=== PATIENT | male | born 1930 | race Caucasian/White ===

== ENCOUNTER 2021-08-01 10:42 | Inpatient (IN) | payer MEDICARE, OTHER ==
[2021-08-01 11:45] LABS: #Eosinphils 0.1 thou/uL (0.0-0.7); #Lymphocytes 0.6 thou/uL (1.20-3.40); #Monocytes 1.8 thou/uL (0.11-0.59); #Neutrophils 10.6 thou/uL (1.40-6.50); %Basophils 0.3 % (0.0-1.0); %Eosinophils 0.6 % (0.0-10.0); %Lymphocytes 4.3 % (21.0-51.0); %Monocytes 13.6 % (0.0-10.0); %Neutrophils 81.3 % (42.0-75.0); Hemoglobin 13.1 g/dL (14.0-18.0); Mean Corpuscular HGB CONC 32.4 g/dL (32.0-36.0); Mean Corpuscular Hemoglobin 30.6 pg (27.0-31.0); Mean Corpuscular Volume 94.5 fL (78.0-98.0); Platelet Count 230 thou/uL (130-400); RBC Distribution Width 11.8 % (11.5-14.5); Red Blood Cell (RBC) Count 4.27 mill/uL (4.70-6.10); White Blood Cell (WBC) Count 13.1 thou/uL (4.8-10.8)
[2021-08-01 12:08] LABS: Acetaminophen Less than 10.0 mcg/mL (10.0-30.0); Alcohol Less than 10 mg/dL (Less than 10); Salicylate Less than 8.0 mg/dL (15.0-30.0)
[2021-08-01 12:10] LABS: ALT (SGPT) 48 U/L (8-55); AST (SGOT) 48 U/L (5-34); Albumin 3.3 g/dL (3.4-4.8); Alkaline Phosphatase 78 U/L (40-110); Anion Gap 14 mmol/L (10-20); BUN (Urea Nitrogen) 41 mg/dL (8.4-25.7); Bilirubin, Total 1.7 mg/dL (0.2-1.2); CK (CPK) 94 U/L (30-200); Calc. Creatinine Clearance 0 mL/min (70-130); Calcium 10.6 mg/dL (7.8-10.44); Carbon Dioxide 24 mmol/L (23-31); Chloride 103 mmol/L (98-107); Globulin 3.3 g/dL (2.4-3.5); Glucose 176 mg/dL (83-110); Lipase 19 U/L (8-78); Potassium 3.5 mmol/L (3.5-5.1); Protein, Total 6.6 g/dL (5.8-8.1); Sodium 137 mmol/L (136-145)
[2021-08-01 12:31] LABS: CKMB 2.6 ng/mL (0-6.6)
[2021-08-01] MEDS ORDERED: Enoxaparin Sodium 30 MG/0.3 ML SYRINGE ONE (12:58)
[2021-08-01] MEDS ORDERED: Enoxaparin Sodium 60 MG/0.6 ML SYRINGE ONE (12:58)
[2021-08-01] MEDS ORDERED: Aspirin Chewable 81 MG TAB ONE (12:58)
[2021-08-01] MEDS ORDERED: Ondansetron PF 4 MG/2 ML Vial IVP PRN (13:59)
[2021-08-01] MEDS ORDERED: Acetaminophen 325 MG TAB PO PRN (13:59)
[2021-08-01] MEDS ORDERED: Ondansetron ODT 4 MG TAB PO PRN (13:59)
[2021-08-01] MEDS ORDERED: Acetaminophen 650 MG Suppository PR PRN (13:59)
[2021-08-01 14:13] LABS: SARS-CoV-2 NAA Rapid Test Not Detected (NotDetected)
[2021-08-01 15:56] LABS: CKMB 2.6 ng/mL (0-6.6)
[2021-08-01 16:29] LABS: Bacteria/HPF 4+ HPF (None Seen); Bilirubin Negative (Negative); Blood, Urine Negative (Negative); Glucose, Urine (Dipstick) Normal (Negative); Ketone, Urine Negative (Negative); Leukocyte Negative Leu/uL (Negative); Nitrite Negative (Negative); Protein, Urine (Dipstick) 100 mg/dL (Neg-Trace); RBC/HPF 0-3 HPF (0-3); Squamous Epithelial 0-3 HPF (0-3); Urobilinogen Normal mg/dL (Less than 2); WBC/HPF 0-3 HPF (0-3); pH, Urine 5.5 (5.0-9.0)
[2021-08-01 16:30] LABS: Clarity Cloudy (Clear)
[2021-08-01 16:35] LABS: Amphetamine Not Detected (NotDetected); Barbiturates Screen Not Detected (NotDetected); Benzodiazepine Screen Not Detected (NotDetected); Cocaine Metabolite Screen Not Detected (NotDetected); Methadone Not Detected (NotDetected); Methamphetamine Not Detected (NotDetected); Opiate Screen Not Detected (NotDetected); Oxycodone Screen Not Detected (NotDetected); Phencyclidine (PCP) Not Detected (NotDetected); THC/Cannabinoid Screen Not Detected (NotDetected); Tricyclic Screen Not Detected (NotDetected)
[2021-08-01 19:22] VITALS: BMI 30.7
[2021-08-01 20:36] LABS: SARS-CoV-2 NAA Rapid Test Not Detected (NotDetected)
[2021-08-01] MEDS: Famotidine 20 MG TAB PO SCH (21:12)
[2021-08-01] MEDS ORDERED: Cepastat Lozenges 1 LOZ PO PRN (21:38)
[2021-08-01] MEDS: hydrALAZINE 20 MG/ML VIAL SLOW IVP PRN (21:46)
[2021-08-01 23:44] LABS: Legionella Urinary Ag Negative (Negative); Strep pneumo Urine Ag NEGATIVE (NEGATIVE)
[2021-08-02] MEDS: hydrALAZINE 20 MG/ML VIAL SLOW IVP PRN (03:39)
[2021-08-02 06:46] LABS: #Basophils 0.1 thou/uL (0.0-0.2); #Eosinphils 0.2 thou/uL (0.0-0.7); #Lymphocytes 0.3 thou/uL (1.20-3.40); #Monocytes 1.2 thou/uL (0.11-0.59); #Neutrophils 8.8 thou/uL (1.40-6.50); %Basophils 1.1 % (0.0-1.0); %Eosinophils 1.9 % (0.0-10.0); %Monocytes 11.3 % (0.0-10.0); %Neutrophils 82.7 % (42.0-75.0); Hemoglobin 14.5 g/dL (14.0-18.0); Mean Corpuscular HGB CONC 31.6 g/dL (32.0-36.0); Mean Corpuscular Hemoglobin 30.3 pg (27.0-31.0); Mean Corpuscular Volume 95.8 fL (78.0-98.0); Mean Platelet Volume 7.8 fL (7.4-10.4); Platelet Count 185 thou/uL (130-400); RBC Distribution Width 11.8 % (11.5-14.5); Red Blood Cell (RBC) Count 4.77 mill/uL (4.70-6.10); White Blood Cell (WBC) Count 10.6 thou/uL (4.8-10.8)
[2021-08-02 07:06] LABS: Anion Gap 14 mmol/L (10-20); BUN (Urea Nitrogen) 32 mg/dL (8.4-25.7); Calc. Creatinine Clearance 37 mL/min (70-130); Calcium 10.6 mg/dL (7.8-10.44); Carbon Dioxide 25 mmol/L (23-31); Chloride 104 mmol/L (98-107); Glucose 136 mg/dL (83-110); Potassium 3.7 mmol/L (3.5-5.1); Sodium 139 mmol/L (136-145)
[2021-08-02] MEDS: Heparin 5,000 UNITS/ML VIAL SC SCH ×2 (09:27→20:20)
[2021-08-02] MEDS: Carvedilol 6.25 MG TAB PO SCH ×2 (09:27→20:20)
[2021-08-02] MEDS: Famotidine 20 MG TAB PO SCH (09:27)
[2021-08-02] MEDS: Aspirin Chewable 81 MG TAB PO SCH (09:27)
[2021-08-02] MEDS: guaiFENesin ER 600 MG TAB PO SCH (20:20)
[2021-08-03] MEDS: hydrALAZINE 20 MG/ML VIAL SLOW IVP PRN (01:19)
[2021-08-03 05:53] LABS: Anion Gap 13 mmol/L (10-20); BUN (Urea Nitrogen) 32 mg/dL (8.4-25.7); Calc. Creatinine Clearance 37 mL/min (70-130); Calcium 10.4 mg/dL (7.8-10.44); Carbon Dioxide 27 mmol/L (23-31); Chloride 103 mmol/L (98-107); Glucose 151 mg/dL (83-110); Potassium 3.8 mmol/L (3.5-5.1); Sodium 139 mmol/L (136-145)
[2021-08-03] MEDS: Carvedilol 6.25 MG TAB PO SCH ×2 (10:02→21:05)
[2021-08-03] MEDS: Aspirin Chewable 81 MG TAB PO SCH (10:02)
[2021-08-03] MEDS: Heparin 5,000 UNITS/ML VIAL SC SCH ×2 (10:03→21:05)
[2021-08-03] MEDS: Losartan/Hydrochlorothiazide 100 mg/25 mg Tablet PO SCH (10:03)
[2021-08-03] MEDS: Famotidine 20 MG TAB PO SCH (10:03)
[2021-08-03] MEDS: guaiFENesin ER 600 MG TAB PO SCH ×2 (10:03→21:05)
[2021-08-04 03:44] LABS: #Eosinphils 0.2 thou/uL (0.0-0.7); #Lymphocytes 0.6 thou/uL (1.20-3.40); #Monocytes 0.9 thou/uL (0.11-0.59); %Eosinophils 2.6 % (0.0-10.0); %Lymphocytes 6.8 % (21.0-51.0); %Monocytes 10.6 % (0.0-10.0); Hemoglobin 13.6 g/dL (14.0-18.0); Mean Corpuscular HGB CONC 32.7 g/dL (32.0-36.0); Mean Corpuscular Hemoglobin 31.2 pg (27.0-31.0); Mean Corpuscular Volume 95.3 fL (78.0-98.0); Mean Platelet Volume 6.9 fL (7.4-10.4); Platelet Count 249 thou/uL (130-400); RBC Distribution Width 11.8 % (11.5-14.5); Red Blood Cell (RBC) Count 4.38 mill/uL (4.70-6.10); White Blood Cell (WBC) Count 8.7 thou/uL (4.8-10.8)
[2021-08-04 04:06] LABS: Anion Gap 14 mmol/L (10-20); BUN (Urea Nitrogen) 34 mg/dL (8.4-25.7); Calc. Creatinine Clearance 38 mL/min (70-130); Calcium 10.4 mg/dL (7.8-10.44); Carbon Dioxide 26 mmol/L (23-31); Chloride 102 mmol/L (98-107); Glucose 152 mg/dL (83-110); Sodium 138 mmol/L (136-145)
[2021-08-04] MEDS: hydrALAZINE 20 MG/ML VIAL SLOW IVP PRN (05:20)
[2021-08-04] MEDS: Famotidine 20 MG TAB PO SCH (10:07)
[2021-08-04] MEDS: Heparin 5,000 UNITS/ML VIAL SC SCH (10:07)
[2021-08-04] MEDS: Aspirin Chewable 81 MG TAB PO SCH (10:07)
[2021-08-04] MEDS: Carvedilol 6.25 MG TAB PO SCH (10:07)
[2021-08-04] MEDS: guaiFENesin ER 600 MG TAB PO SCH (10:07)
[2021-08-04] MEDS: Losartan/Hydrochlorothiazide 100 mg/25 mg Tablet PO SCH (10:34)
[2021-08-04 15:49] VITALS: TEMP 97.3
[2021-08-04 16:06] VITALS: BP 153/72
== END 2021-08-04 19:05 | DRG 871 ==
LOC: ERS 10:42 → ERHOLD 13:21 → 2NO 18:23
PROVIDERS: ADMIT Internal Medicine; ATTEND Internal Medicine
DX: A41.9 Sepsis, unspecified organism (principal); J18.9 Pneumonia, unspecified organism; J96.01 Acute respiratory failure with hypoxia; I21.A1 Myocardial infarction type 2; G93.41 Metabolic encephalopathy; N17.9 Acute kidney failure, unspecified; Z20.822 Contact with and (suspected) exposure to COVID-19; E78.5 Hyperlipidemia, unspecified; F32.A Depression, unspecified; E78.00 Pure hypercholesterolemia, unspecified; I25.10 Atherosclerotic heart disease of native coronary artery without angina pectoris; E11.22 Type 2 diabetes mellitus with diabetic chronic kidney disease; I12.9 Hypertensive chronic kidney disease with stage 1 through stage 4 chronic kidney disease, or unspecified chronic kidney disease; N18.30 Chronic kidney disease, stage 3 unspecified; Z95.1 Presence of aortocoronary bypass graft; Z90.09 Acquired absence of other part of head and neck; Z88.0 Allergy status to penicillin; Z98.890 Other specified postprocedural states; Z79.84 Long term (current) use of oral hypoglycemic drugs; Z79.899 Other long term (current) drug therapy; Z79.82 Long term (current) use of aspirin
CPT/HCPCS: 36415; 36416; 51701; 70450; 71045; 80048; 80053; 80306; 80307; 81003; 81015; 82140; 82550; 82553; 83605; 83690; 83880; 84443; 84484; 85025; 85379; 87040; 87086; 87449; 87899; 93005; 96365; 96366; 96372; J0360; J1644; J1650; J1956; U0002

== ENCOUNTER 2021-11-07 20:37 | Emergency (ER) | payer MEDICARE, OTHER ==
[2021-11-07] MEDS ORDERED: hydrALAZINE 10 MG TAB PO SCH (21:15)
== END 2021-11-07 23:08 | disposition home or self-care (01) ==
LOC: ERS 20:37
DX: S02.2XXA Fracture of nasal bones, initial encounter for closed fracture (principal); Z79.899 Other long term (current) drug therapy; I10 Essential (primary) hypertension; E11.9 Type 2 diabetes mellitus without complications; E78.5 Hyperlipidemia, unspecified; I25.2 Old myocardial infarction; W01.10XA Fall on same level from slipping, tripping and stumbling with subsequent striking against unspecified object, initial encounter
CPT/HCPCS: 70450; 70486; 72125; 93005

== ENCOUNTER 2021-11-21 13:03 | Inpatient (IN) | payer MEDICARE, OTHER ==
[2021-11-21 13:38] LABS: #Eosinphils 0.1 thou/uL (0.0-0.7); #Lymphocytes 0.7 thou/uL (1.20-3.40); #Monocytes 1.1 thou/uL (0.11-0.59); #Neutrophils 7.9 thou/uL (1.40-6.50); %Basophils 0.2 % (0.0-1.0); %Eosinophils 1.1 % (0.0-10.0); %Lymphocytes 6.6 % (21.0-51.0); %Monocytes 11.5 % (0.0-10.0); %Neutrophils 80.5 % (42.0-75.0); Hemoglobin 13.5 g/dL (14.0-18.0); Mean Corpuscular HGB CONC 32.2 g/dL (32.0-36.0); Mean Platelet Volume 7.1 fL (7.4-10.4); Platelet Count 204 thou/uL (130-400); RBC Distribution Width 11.9 % (11.5-14.5); White Blood Cell (WBC) Count 9.8 thou/uL (4.8-10.8)
[2021-11-21 14:01] LABS: ALT (SGPT) 50 U/L (8-55); AST (SGOT) 30 U/L (5-34); Albumin 3.1 g/dL (3.4-4.8); Alkaline Phosphatase 81 U/L (40-110); Anion Gap 12 mmol/L (10-20); BUN (Urea Nitrogen) 39 mg/dL (8.4-25.7); Bilirubin, Total 0.8 mg/dL (0.2-1.2); CK (CPK) 12 U/L (30-200); Calc. Creatinine Clearance 0 mL/min (70-130); Calcium 10.2 mg/dL (7.8-10.44); Carbon Dioxide 25 mmol/L (23-31); Chloride 109 mmol/L (98-107); Estimated GFR 25; Globulin 2.4 g/dL (2.4-3.5); Glucose 172 mg/dL (83-110); Potassium 4.4 mmol/L (3.5-5.1); Protein, Total 5.5 g/dL (5.8-8.1); Sodium 142 mmol/L (136-145)
[2021-11-21 14:20] LABS: CKMB 1.2 ng/mL (0-6.6)
[2021-11-21 15:02] LABS: Lipase 60 U/L (8-78); Magnesium 2.1 mg/dL (1.6-2.6)
[2021-11-21] MEDS ORDERED: Sodium Chloride 0.9% 1,000 ML IV SCH (15:35)
[2021-11-21 15:53] LABS: Bacteria/HPF None Seen HPF (None Seen); Bilirubin Negative (Negative); Blood, Urine 1+ (Negative); Clarity Clear (Clear); Glucose, Urine (Dipstick) Normal (Negative); Ketone, Urine Negative (Negative); Leukocyte Negative Leu/uL (Negative); Nitrite Negative (Negative); Protein, Urine (Dipstick) 200 mg/dL (Neg-Trace); Specific Gravity, Urine 1.013 (1.002-1.036); Squamous Epithelial None Seen HPF (0-3); Urobilinogen Normal mg/dL (Less than 2); WBC/HPF 0-3 HPF (0-3); pH, Urine 6.5 (5.0-9.0)
[2021-11-21 17:20] LABS: Troponin I 0.043 ng/mL (< 0.028)
[2021-11-21] MEDS ORDERED: Acetaminophen 325 MG TAB PO PRN (17:52)
[2021-11-21] MEDS ORDERED: hydrALAZINE 20 MG/ML VIAL SLOW IVP PRN ×2 (18:19→18:43)
[2021-11-21] MEDS: Sodium Chloride 0.9% 1,000 ML IV SCH (19:39)
[2021-11-21 19:59] LABS: Troponin I 0.053 ng/mL (< 0.028)
[2021-11-21 20:01] VITALS: BMI 25.4
[2021-11-21] MEDS: Atorvastatin Calcium 20 MG TAB PO SCH (22:19)
[2021-11-22 05:56] LABS: #Eosinphils 0.3 thou/uL (0.0-0.7); #Lymphocytes 0.9 thou/uL (1.20-3.40); #Monocytes 0.9 thou/uL (0.11-0.59); %Basophils 0.1 % (0.0-1.0); %Eosinophils 3.5 % (0.0-10.0); %Lymphocytes 11.4 % (21.0-51.0); %Monocytes 10.9 % (0.0-10.0); %Neutrophils 74.1 % (42.0-75.0); Hemoglobin 13.1 g/dL (14.0-18.0); Mean Corpuscular HGB CONC 32.5 g/dL (32.0-36.0); Mean Corpuscular Hemoglobin 30.3 pg (27.0-31.0); Mean Corpuscular Volume 93.3 fL (78.0-98.0); Mean Platelet Volume 7.7 fL (7.4-10.4); Platelet Count 186 thou/uL (130-400); Red Blood Cell (RBC) Count 4.31 mill/uL (4.70-6.10); White Blood Cell (WBC) Count 8.1 thou/uL (4.8-10.8)
[2021-11-22 06:17] LABS: Anion Gap 11 mmol/L (10-20); BUN (Urea Nitrogen) 31 mg/dL (8.4-25.7); Calc. Creatinine Clearance 33 mL/min (70-130); Calcium 10.1 mg/dL (7.8-10.44); Carbon Dioxide 23 mmol/L (23-31); Chloride 112 mmol/L (98-107); Cholesterol 132 mg/dl (< 200 Desired); Estimated GFR 34; Glucose 103 mg/dL (83-110); HDL Cholesterol 22 mg/dL (>60 Neg Risk); LDL Cholesterol, Calculated 87 mg/dL; Potassium 4.3 mmol/L (3.5-5.1); Sodium 142 mmol/L (136-145); Triglycerides 117 mg/dL (Less than 150)
[2021-11-22] MEDS: Sodium Chloride 0.9% 1,000 ML IV SCH ×2 (08:22→12:55)
[2021-11-22] MEDS: Alogliptin 6.25 MG TAB PO SCH ×2 (08:23→08:27)
[2021-11-22] MEDS: Aspirin 81 mg Enteric Coated Tablet PO SCH (08:23)
[2021-11-22] MEDS ORDERED: NIFEdipine XL 60 MG TAB PO SCH (12:15)
[2021-11-22 13:34] LABS: Creatinine, Urine 37.04 mg/dL (63-166)
[2021-11-22] MEDS: Atorvastatin Calcium 20 MG TAB PO SCH (21:22)
[2021-11-23] MEDS: Sodium Chloride 0.9% 1,000 ML IV SCH (04:26)
[2021-11-23 05:24] LABS: #Eosinphils 0.4 thou/uL (0.0-0.7); #Lymphocytes 0.9 thou/uL (1.20-3.40); #Monocytes 0.9 thou/uL (0.11-0.59); #Neutrophils 5.4 thou/uL (1.40-6.50); %Basophils 0.1 % (0.0-1.0); %Eosinophils 4.8 % (0.0-10.0); %Monocytes 11.3 % (0.0-10.0); %Neutrophils 71.8 % (42.0-75.0); Hemoglobin 12.4 g/dL (14.0-18.0); Mean Corpuscular HGB CONC 31.1 g/dL (32.0-36.0); Mean Corpuscular Hemoglobin 29.3 pg (27.0-31.0); Mean Corpuscular Volume 93.9 fL (78.0-98.0); Mean Platelet Volume 7.2 fL (7.4-10.4); Platelet Count 210 thou/uL (130-400); Red Blood Cell (RBC) Count 4.25 mill/uL (4.70-6.10); White Blood Cell (WBC) Count 7.5 thou/uL (4.8-10.8)
[2021-11-23 05:52] LABS: Anion Gap 11 mmol/L (10-20); BUN (Urea Nitrogen) 31 mg/dL (8.4-25.7); Calc. Creatinine Clearance 32 mL/min (70-130); Calcium 10.1 mg/dL (7.8-10.44); Carbon Dioxide 26 mmol/L (23-31); Chloride 108 mmol/L (98-107); Estimated GFR 33; Glucose 128 mg/dL (83-110); Sodium 141 mmol/L (136-145)
[2021-11-23] MEDS: Enoxaparin Sodium 40 MG/0.4 ML SYRINGE SC SCH (08:36)
[2021-11-23] MEDS: NIFEdipine XL 90 MG TAB PO SCH (08:36)
[2021-11-23] MEDS: Aspirin 81 mg Enteric Coated Tablet PO SCH (08:36)
[2021-11-23] MEDS: Alogliptin 6.25 MG TAB PO SCH (08:39)
[2021-11-23 12:30] LABS: ANA Symphony (Qualitative) Negative (Negative); ANA Symphony (Quantitative) 0.3 Ratio (< 0.7 Negative); dsDNA IgG Antibody 1.1 IU/mL (<10 Negative)
[2021-11-23] MEDS: Atorvastatin Calcium 20 MG TAB PO SCH (20:48)
[2021-11-24] MEDS: Sodium Chloride 0.9% 1,000 ML IV SCH (01:23)
[2021-11-24 05:26] LABS: #Eosinphils 0.3 thou/uL (0.0-0.7); #Lymphocytes 0.9 thou/uL (1.20-3.40); #Monocytes 0.9 thou/uL (0.11-0.59); #Neutrophils 4.9 thou/uL (1.40-6.50); %Basophils 0.4 % (0.0-1.0); %Eosinophils 4.4 % (0.0-10.0); %Monocytes 12.5 % (0.0-10.0); %Neutrophils 69.7 % (42.0-75.0); Hemoglobin 12.9 g/dL (14.0-18.0); Mean Corpuscular HGB CONC 31.8 g/dL (32.0-36.0); Mean Corpuscular Volume 94.5 fL (78.0-98.0); Mean Platelet Volume 7.5 fL (7.4-10.4); Platelet Count 205 thou/uL (130-400); RBC Distribution Width 12.2 % (11.5-14.5); Red Blood Cell (RBC) Count 4.31 mill/uL (4.70-6.10)
[2021-11-24 05:38] LABS: Anion Gap 12 mmol/L (10-20); BUN (Urea Nitrogen) 28 mg/dL (8.4-25.7); Calc. Creatinine Clearance 37 mL/min (70-130); Calcium 9.9 mg/dL (7.8-10.44); Carbon Dioxide 23 mmol/L (23-31); Chloride 111 mmol/L (98-107); Estimated GFR 39; Glucose 121 mg/dL (83-110); Potassium 4.1 mmol/L (3.5-5.1); Sodium 142 mmol/L (136-145)
[2021-11-24] MEDS: Alogliptin 6.25 MG TAB PO SCH (08:54)
[2021-11-24] MEDS: Aspirin 81 mg Enteric Coated Tablet PO SCH (08:54)
[2021-11-24] MEDS: NIFEdipine XL 90 MG TAB PO SCH (08:54)
[2021-11-24] MEDS: Enoxaparin Sodium 40 MG/0.4 ML SYRINGE SC SCH (08:54)
[2021-11-24 11:45] VITALS: BP 154/72; TEMP 97.6
[2021-11-25 15:13] LABS: Kappa Lambda Light Chain Ratio 1.39 (0.26-1.65); Lambda Light Chain 30.3 mg/L (5.7-26.3)
[2021-11-28 13:12] LABS: A/G Ratio 0.9 (0.7-1.7); Albumin 2.5 g/dL (2.9-4.4); Alpha 1 0.2 g/dL (0.0-0.4); Alpha 2 0.9 g/dL (0.4-1.0); Gamma 0.8 g/dL (0.4-1.8); Globulin, Total 2.8 g/dL (2.2-3.9); M-Spike Not Observed g/dL (Not Observed); Protein Electrophoresis Intrp Note: (.)
[2021-11-28 14:37] LABS: Albumin-Ur 59.9 % (.); Alpha 1 - Ur 2.8 % (.); Alpha 2 - Ur 7.9 % (.); Beta-Ur 15.5 % (.); Gamma-Ur 13.8 % (.); M-Spike,% Not Observed % (Not Observed); Protein, Urine 184.2 mg/dL (Not Estab.)
[2021-11-30] MEDS ORDERED: Ergocalciferol 1.25 MG(50,000 UNITS) CAP PO SCH (09:00)
== END 2021-11-24 12:50 | disposition home health service (06) | DRG 682 ==
LOC: ERS 13:03 → NEURO 15:48 → OBSVTOIN 11-22 15:32
PROVIDERS: ADMIT Internal Medicine; ATTEND Internal Medicine
DX: N17.9 Acute kidney failure, unspecified (principal); G93.41 Metabolic encephalopathy; I25.10 Atherosclerotic heart disease of native coronary artery without angina pectoris; Z66 Do not resuscitate; I12.9 Hypertensive chronic kidney disease with stage 1 through stage 4 chronic kidney disease, or unspecified chronic kidney disease; E11.22 Type 2 diabetes mellitus with diabetic chronic kidney disease; E78.5 Hyperlipidemia, unspecified; N18.30 Chronic kidney disease, stage 3 unspecified; R00.1 Bradycardia, unspecified; I16.0 Hypertensive urgency; G93.89 Other specified disorders of brain; D63.1 Anemia in chronic kidney disease; Z95.1 Presence of aortocoronary bypass graft; Z88.0 Allergy status to penicillin; Z79.899 Other long term (current) drug therapy; Z79.84 Long term (current) use of oral hypoglycemic drugs; Z79.82 Long term (current) use of aspirin; Z90.09 Acquired absence of other part of head and neck
CPT/HCPCS: 36415; 36416; 51701; 70450; 70551; 71045; 76770; 80048; 80053; 80061; 81003; 81015; 82306; 82550; 82553; 82570; 83605; 83690; 83735; 83883; 83970; 84100; 84155; 84156; 84165; 84166; 84443; 84484; 85025; 86038; 86225; 93005; 93306; 93880; 94760; 95712; 95819; 95957; 96360; G0378; J1650; J7050; U0003; U0005